=== PATIENT | male | born 1960 | race African-American/Black ===

== ENCOUNTER 2019-02-01 09:47 | Inpatient (IN) | payer OTHER ==
[~2019-02-01] VITALS: Ht 180.3 cm; Wt 158.8 kg
[2019-02-01] MEDS ORDERED: INSULIN (10:06)
[2019-02-01] MEDS ORDERED: LOSA25TA26 PO (10:06)
[2019-02-01] MEDS ORDERED: METF-816 PO (10:06)
[2019-02-01] MEDS ORDERED: IPRATROPIUM BROMIDE (0.02%) 0.5MG/2.5ML NEB HHN STA (11:16)
[2019-02-01] MEDS ORDERED: ALBUTEROL (0.083%) 2.5MG/3ML NEB HHN STA (11:16)
[2019-02-01] MEDS ORDERED: ASPIRIN 81MG TABLET PO ONE (11:30)
[2019-02-01] MEDS ORDERED: NITROGLYCERIN OINT 1GM/INCH UDPKT TD ONE (11:30)
[2019-02-01 12:11] LABS: BASOPHILS % 0.9 % (0.0-2.0); EOSINOPHILS % 3.1 % (0.0-5.0); HEMOGLOBIN. 13.1 g/dL (14.0-18.0); LYMPHOCYTES % 26.6 % (20.0-50.0); MEAN CORPUSCULAR HEMOGLOBIN 26.9 pg (28.0-32.0); MONOCYTES % 12.2 % (2.0-8.0); NEUTROPHILS % 57.2 % (40.0-76.0); PLATELET 272 x1000/uL (130-400); RED BLOOD CELL COUNT 4.88 mill/uL (4.7-6.1); RED CELL DISTRIBUTION WIDTH 13.3 % (11.6-14.6)
[2019-02-01 12:16] LABS: CHLORIDE 108 mEq/L (98-107)
[2019-02-01 12:33] LABS: INR 0.9; PARTIAL THROMBOPLASTIN TIME 26.2 sec (23.4-31.0); PROTHROMBIN TIME 9.8 sec (9.6-11.0)
[2019-02-01] MEDS ORDERED: LEVOFLOXACIN 750MG PREMIX 150 ML IV ONE (14:45)
[2019-02-01 15:18] LABS: CLARITY URINE CLEAR (CLEAR); COLOR URINE YELLOW (YELLOW); KETONES URINE NEGATIVE (NEGATIVE); LEUKOCYTE ESTERASE URINE NEGATIVE (NEGATIVE); NITRITE URINE NEGATIVE (NEGATIVE); OCCULT BLOOD URINE 3+ (NEGATIVE); PH URINE 5.5 (4.5-8.0); PROTEIN URINE 1+ (NEGATIVE); SPECIFIC GRAVITY URINE 1.023 (1.005-1.030); UROBILINOGEN URINE 0.2 E.U./dL (0.2-1.0)
[2019-02-01] MEDS ORDERED: ACETAMINOPHEN 325MG TABLET PO PRN (16:30)
[2019-02-01] MEDS ORDERED: DIPHENHYDRAMINE 50MG/ML VIAL IV PRN (16:30)
[2019-02-01] MEDS ORDERED: MAGNESIUM/ALUMINUM HYDROXIDE/SIMETHICONE 30ML UDC PO PRN (16:30)
[2019-02-01] MEDS ORDERED: DOCUSATE SODIUM 100MG CAPSULE PO PRN (16:30)
[2019-02-01] MEDS ORDERED: HYDROCODONE/ACETAMINOPHEN 5/325MG TABLET PO PRN (16:30)
[2019-02-01] MEDS ORDERED: GUAIFENESIN 200MG/10ML SUGAR FREE UDC PO PRN (16:30)
[2019-02-01] MEDS ORDERED: IPRATROPIUM/ALBUTEROL 0.5-3(2.5)MG/3ML NEB INH PRN (16:30)
[2019-02-01] MEDS ORDERED: ONDANSETRON HCL 4MG/2ML INJ IV PRN (16:30)
[2019-02-01] MEDS: CLONIDINE 0.1MG TABLET PO PRN (17:58)
[2019-02-01 18:00] LABS: PHOSPHORUS 3.5 mg/dL (2.5-4.9)
[2019-02-01] MEDS ORDERED: ENOXAPARIN 40MG/0.4ML SYR SUBCUT NR (18:00)
[2019-02-01 22:00] VITALS: BP 125/89
[2019-02-01 23:13] LABS: CREATINE KINASE 156 IU/L (39-308)
[2019-02-01 23:14] LABS: CREATINE KINASE MB FRACTION < 1.0 ng/mL (0.5-3.6)
[2019-02-01] MEDS ORDERED: ATOR20TA65 PO (23:28)
[2019-02-02] VITALS: BP 135/90
[2019-02-02] MEDS ORDERED: DEXTROSE 50% WATER 50ML SYRINGE IV PRN (00:15)
[2019-02-02] MEDS ORDERED: ENOXAPARIN 40MG/0.4ML SYR SUBCUT SCH (06:00)
[2019-02-02 06:10] VITALS: BP 147/89
[2019-02-02] MEDS: INSULIN LISPRO 100 UNITS/ML SUBCUT SCH ×2 (06:36→12:40)
[2019-02-02] MEDS: BLOOD SUGAR DIAGNOSTIC STRIP TEST SCH ×2 (06:36→12:46)
[2019-02-02 07:41] LABS: BASOPHILS % 0.2 % (0.0-2.0); EOSINOPHILS % 2.5 % (0.0-5.0); HEMATOCRIT. 40.1 % (42.0-52.0); HEMOGLOBIN. 13.1 g/dL (14.0-18.0); LYMPHOCYTES % 26.9 % (20.0-50.0); MEAN CORPUSCULAR HEMOGLOBIN 27.3 pg (28.0-32.0); MEAN CORPUSCULAR VOLUME 83.7 fL (80.0-94.0); MEAN PLATELET VOLUME 7.1 fl (7.4-10.4); MONOCYTES % 9.2 % (2.0-8.0); NEUTROPHILS % 61.2 % (40.0-76.0); PLATELET 285 x1000/uL (130-400); RED BLOOD CELL COUNT 4.79 mill/uL (4.7-6.1); RED CELL DISTRIBUTION WIDTH 13.7 % (11.6-14.6)
[2019-02-02 08:28] LABS: CHLORIDE 105 mEq/L (98-107)
[2019-02-02 08:53] LABS: LDL CHOLESTEROL 76 mg/dL (5-100)
[2019-02-02 08:54] LABS: CREATINE KINASE 140 IU/L (39-308)
[2019-02-02 08:55] LABS: HDL CHOLESTEROL 38 mg/dL (40-59)
[2019-02-02 08:57] LABS: CREATINE KINASE MB FRACTION < 1.0 ng/mL (0.5-3.6)
[2019-02-02] MEDS ORDERED: THIAMINE HCL 100MG TABLET PO SCH (10:15)
[2019-02-02] MEDS ORDERED: MULTIVITAMINS,THER W-MINERALS TABLET PO SCH (10:15)
[2019-02-02] MEDS ORDERED: FOLIC ACID 1MG TABLET PO SCH (10:15)
[2019-02-02] MEDS ORDERED: FLUTICASONE PROPIONATE 50MCG/SPRAY BOTTLE BOTHNSTRLS SCH (11:00)
[2019-02-02 12:00] VITALS: BP 130/100
[2019-02-02] MEDS ORDERED: IPRATROPIUM/ALBUTEROL 0.5-3(2.5)MG/3ML NEB HHN SCH (12:00)
[2019-02-02] MEDS ORDERED: LOSARTAN POTASSIUM 25 MG TABLET PO SCH (13:15)
[2019-02-02] MEDS ORDERED: AMLODIPINE 2.5MG TABLET PO SCH (13:15)
[2019-02-02] MEDS ORDERED: LOSA25TA3 PO (13:18)
[2019-02-02] MEDS ORDERED: DEXTL PO (13:18)
[2019-02-02] MEDS ORDERED: FOLI-43 PO (13:18)
[2019-02-02] MEDS ORDERED: THIA100T72 PO (13:18)
[2019-02-02 13:31] VITALS: BP 164/103
[2019-02-02] MEDS: CLONIDINE 0.1MG TABLET PO PRN (13:36)
[2019-02-02 14:11] LABS: *BARBITURATES SCREEN URINE NEGATIVE (NEGATIVE); *BENZODIAZEPINES SCREEN URINE NEGATIVE (NEGATIVE); *COCAINE SCREEN URINE NEGATIVE (NEGATIVE)
[2019-02-02 14:12] LABS: *AMPHETAMINES SCREEN URINE NEGATIVE (NEGATIVE); CANNABINOID URINE SCREEN PRESUMTIVE POSITIVE (NEGATIVE); METHADONE URINE SCREEN NEGATIVE (NEGATIVE); OPIATES URINE SCREEN NEGATIVE (NEGATIVE); PHENCYCLIDINE URINE SCREEN NEGATIVE (NEGATIVE)
[2019-02-02 14:46] VITALS: BP 157/100
[2019-02-02] MEDS ORDERED: GUAIFENESIN 600MG ER TABLET PO SCH (21:00)
== END 2019-02-02 15:10 | disposition home or self-care (01) | DRG 189 ==
LOC: ER 09:47 → 8WST 15:53 → CANRESERV 18:07 → ENRESERV 19:42
PROVIDERS: ADMIT Internal Medicine; ATTEND Internal Medicine
DX: J96.00 Acute respiratory failure, unspecified whether with hypoxia or hypercapnia (principal); Z68.42 Body mass index [BMI] 45.0-49.9, adult; J06.9 Acute upper respiratory infection, unspecified; D64.9 Anemia, unspecified; D72.821 Monocytosis (symptomatic); E11.9 Type 2 diabetes mellitus without complications; E66.9 Obesity, unspecified; E78.00 Pure hypercholesterolemia, unspecified; E78.5 Hyperlipidemia, unspecified; Z60.2 Problems related to living alone; F10.10 Alcohol abuse, uncomplicated; F12.90 Cannabis use, unspecified, uncomplicated; F17.210 Nicotine dependence, cigarettes, uncomplicated; I10 Essential (primary) hypertension; J30.2 Other seasonal allergic rhinitis; Z79.4 Long term (current) use of insulin; Z87.442 Personal history of urinary calculi; Z79.84 Long term (current) use of oral hypoglycemic drugs; Z79.899 Other long term (current) drug therapy; Z71.6 Tobacco abuse counseling
CPT/HCPCS: 36415; 71045; 80061; 80305; 82550; 82553; 82962; 83036; 83605; 83735; 83880; 84100; 84443; 84484; 85379; 93005; 93306; 93970; 94640; 96374; 96375; 97161; 97165; 99285; J1650; J1956; J7611; J7620

== ENCOUNTER 2021-06-29 13:37 | Emergency (ER) | payer OTHER ==
[~2021-06-29] VITALS: Ht 175.3 cm; Wt 150.0 kg
[~2021-06-29 13:37] MED LIST: ATOR20TA65 PO; DEXTL PO; FOLI-43 PO; LOSA25TA3 PO; METF-874 PO; THIA100T72 PO
[2021-06-29 13:48] VITALS: BP 194/110
[2021-06-29] MEDS ORDERED: IBUP-2029 MT (18:23)
== END 2021-06-29 18:50 | disposition home or self-care (01) ==
LOC: ER 13:37
DX: M71.22 Synovial cyst of popliteal space [Baker], left knee (principal); M17.12 Unilateral primary osteoarthritis, left knee; E11.9 Type 2 diabetes mellitus without complications; I10 Essential (primary) hypertension; E78.00 Pure hypercholesterolemia, unspecified; F12.10 Cannabis abuse, uncomplicated; Z79.84 Long term (current) use of oral hypoglycemic drugs
CPT/HCPCS: 73560; 93971; 99284

== ENCOUNTER 2021-08-29 18:26 | Emergency (ER) | payer OTHER ==
[~2021-08-29] VITALS: Ht 182.9 cm; Wt 159.0 kg
[~2021-08-29 18:26] MED LIST changes: +IBUP-2029 MT
[2021-08-29] MEDS ORDERED: CEPH500C2 MT (18:52)
[2021-08-29] MEDS ORDERED: CEPHALEXIN 250MG CAPSULE PO ONE (19:00)
[2021-08-29 19:10] VITALS: BP 174/98
[2021-08-29] MEDS ORDERED: CEPHALEXIN 250MG CAPSULE PO NR (19:15)
== END 2021-08-29 19:11 | disposition home or self-care (01) ==
LOC: ER 18:26
DX: L03.011 Cellulitis of right finger (principal); E11.9 Type 2 diabetes mellitus without complications; I10 Essential (primary) hypertension; E78.00 Pure hypercholesterolemia, unspecified; F12.10 Cannabis abuse, uncomplicated; Z79.84 Long term (current) use of oral hypoglycemic drugs
CPT/HCPCS: 99283

== ENCOUNTER 2023-11-27 12:48 | Emergency (ER) | payer OTHER ==
[~2023-11-27] VITALS: Ht 182.9 cm; Wt 164.0 kg
[~2023-11-27 12:48] MED LIST changes: +CEPH500C2 MT; +LOSA-412 PO; -LOSA25TA3 PO
[2023-11-27 12:55] VITALS: TEMP 98.3; O2SAT 97
[2023-11-27 16:31] LABS: BASOPHILS % 0.4 % (0.0-2.0); EOSINOPHILS % 2.6 % (0.0-5.0); HEMATOCRIT. 42.2 % (42.0-52.0); HEMOGLOBIN. 13.5 g/dL (14.0-18.0); LYMPHOCYTES % 13.3 % (20.0-50.0); MEAN CORPUSCULAR HEMOGLOBIN 27.5 pg (28.0-32.0); MEAN CORPUSCULAR HGB CONC 32.1 g/dL (31.0-37.0); MEAN CORPUSCULAR VOLUME 85.8 fL (80.0-94.0); MEAN PLATELET VOLUME 7.1 fl (7.4-10.4); MONOCYTES % 12.6 % (2.0-8.0); NEUTROPHILS % 71.1 % (40.0-76.0); PLATELET 233 x1000/uL (130-400); RED BLOOD CELL COUNT 4.92 mill/uL (4.7-6.1); RED CELL DISTRIBUTION WIDTH 14.1 % (11.6-14.6); WHITE BLOOD COUNT 8.4 x1000/uL (4.5-11.0)
[2023-11-27 16:39] LABS: INR 0.9; PARTIAL THROMBOPLASTIN TIME 26.3 sec (23.4-31.0); PROTHROMBIN TIME 10.4 sec (9.6-11.0)
[2023-11-27] MEDS: HYDRALAZINE 20MG/ML VIAL IV ONE (16:46)
[2023-11-27 16:55] LABS: ALANINE AMINOTRANSFERASE 19 IU/L (10-49); ALBUMIN 4.5 g/dL (3.2-4.8); ASPARTATE AMINOTRANSFERASE 32 IU/L (<34); BILIRUBIN TOTAL 0.5 mg/dL (0.1-1.0); CALCIUM 8.8 mg/dL (8.7-10.4); CARBON DIOXIDE 22 mEq/L (21-32); CHLORIDE 103 mEq/L (98-107); GLUCOSE 92 mg/dL (70-105); POTASSIUM 4.4 mEq/L (3.5-5.1); PROTEIN TOTAL 6.9 g/dL (6.0-8.3); SODIUM 134 mEq/L (136-145); TROPONIN I HIGH SENSITIVITY 7 ng/L (3.0-53); UREA NITROGEN BLOOD 9 mg/dL (9-23)
[2023-11-27] MEDS ORDERED: GUAI-450 MT (17:02)
[2023-11-27] MEDS ORDERED: BENZ1LOZ73 MT (17:02)
[2023-11-27 17:27] VITALS: BP 159/70; PULSE 70; RESP 15
== END 2023-11-27 17:29 | disposition home or self-care (01) ==
LOC: ER 13:14
DX: J06.9 Acute upper respiratory infection, unspecified (principal); I10 Essential (primary) hypertension; F12.90 Cannabis use, unspecified, uncomplicated; E11.9 Type 2 diabetes mellitus without complications; E78.00 Pure hypercholesterolemia, unspecified
CPT/HCPCS: 80053; 83880; 85025; 85610; 85730; 84484; 36415; 71045; 93005; 96374; 99285; J0360; Z7610 ×3

== ENCOUNTER 2024-03-27 15:43 | Inpatient (IN) | payer OTHER ==
[~2024-03-27] VITALS: Ht 182.9 cm; Wt 154.2 kg
[~2024-03-27 15:43] MED LIST changes: +BENZ1LOZ73 MT; +GUAI-450 MT
[2024-03-27 17:46] LABS: BASOPHILS % 0.3 % (0.0-2.0); EOSINOPHILS % 2.4 % (0.0-5.0); HEMATOCRIT. 43.2 % (42.0-52.0); HEMOGLOBIN. 13.8 g/dL (14.0-18.0); LYMPHOCYTES % 13.6 % (20.0-50.0); MEAN CORPUSCULAR HEMOGLOBIN 26.9 pg (28.0-32.0); MEAN CORPUSCULAR VOLUME 83.9 fL (80.0-94.0); MONOCYTES % 13.6 % (2.0-8.0); NEUTROPHILS % 70.1 % (40.0-76.0); PLATELET 375 x1000/uL (130-400); RED BLOOD CELL COUNT 5.15 mill/uL (4.7-6.1); WHITE BLOOD COUNT 13.5 x1000/uL (4.5-11.0)
[2024-03-27 17:54] LABS: POTASSIUM 3.9 mEq/L (3.5-5.1)
[2024-03-27 17:55] LABS: CALCIUM 9.7 mg/dL (8.7-10.4)
[2024-03-27] MEDS: CEFTRIAXONE 1GM/50ML 50 ML IV ONE (18:39)
[2024-03-27] MEDS: SODIUM CHLORIDE 0.9% 1,000 ML IV ONE (18:39)
[2024-03-27] MEDS ORDERED: IPRATROPIUM/ALBUTEROL 0.5-3(2.5)MG/3ML NEB HHN PRN (21:30)
[2024-03-27] MEDS ORDERED: DOCUSATE SODIUM 100MG CAPSULE PO PRN (21:30)
[2024-03-27] MEDS ORDERED: GUAIFENESIN 200MG/10ML SUGAR FREE UDC PO PRN (21:30)
[2024-03-27] MEDS ORDERED: MAGNESIUM/ALUMINUM HYDROXIDE/SIMETHICONE 30ML UDC PO PRN (21:30)
[2024-03-27] MEDS ORDERED: ONDANSETRON HCL 4MG/2ML INJ IV PRN (21:30)
[2024-03-27] MEDS ORDERED: CLONIDINE 0.1MG TABLET PO PRN (21:30)
[2024-03-28] MEDS ORDERED: DEXTROSE 50% WATER 50ML SYRINGE IV PRN ×3 (02:15)
[2024-03-28 03:00] VITALS: BP 126/80; PULSE 92; RESP 17; TEMP 97.2
[2024-03-28] MEDS: BLOOD SUGAR DIAGNOSTIC STRIP TEST SCH (06:35)
[2024-03-28] MEDS ORDERED: BLOOD SUGAR DIAGNOSTIC STRIP TEST SCH ×3 (07:20)
[2024-03-28] MEDS: INSULIN LISPRO 100 UNITS/ML SUBCUT SCH (07:50)
[2024-03-28 08:00] VITALS: BP 111/74; PULSE 83; RESP 18; TEMP 96.7; TEMP 98.1
[2024-03-28] MEDS: TAMSULOSIN HCL 0.4MG SR CAPSULE PO SCH (09:00)
[2024-03-28] MEDS: CEFTRIAXONE 2GM/50ML 50 ML IV SCH (10:14)
[2024-03-28] MEDS: SODIUM CHLORIDE 0.9% 500 ML IV ONE (11:30)
[2024-03-28 12:00] VITALS: BP 118/80; PULSE 79; RESP 18; TEMP 98
[2024-03-28] MEDS: PNEUMOCOCCAL 23-VAL P-SAC VAC 0.5 ML IM ONE (15:00)
[2024-03-28 16:00] VITALS: BP 120/80; PULSE 80; RESP 16; TEMP 97.9
[2024-03-28 17:36] LABS: CREATINE KINASE 45 IU/L (46-171)
[2024-03-28] MEDS: ACETAMINOPHEN 325MG TABLET PO PRN (18:44)
[2024-03-28 20:00] VITALS: BP 112/71; PULSE 89; RESP 18; TEMP 99.1
[2024-03-28] MEDS: ATORVASTATIN CALCIUM 20MG TABLET PO SCH (20:15)
[2024-03-29] VITALS: BP 152/72; PULSE 71; RESP 20; TEMP 98.6
[2024-03-29 04:00] VITALS: BP 124/70; PULSE 62; RESP 18; TEMP 97.7
[2024-03-29 06:47] LABS: BASOPHILS % 0.4 % (0.0-2.0); EOSINOPHILS % 3.5 % (0.0-5.0); HEMATOCRIT. 38.7 % (42.0-52.0); HEMOGLOBIN. 12.4 g/dL (14.0-18.0); LYMPHOCYTES % 16.5 % (20.0-50.0); MEAN CORPUSCULAR HEMOGLOBIN 26.7 pg (28.0-32.0); MEAN CORPUSCULAR VOLUME 83.4 fL (80.0-94.0); MEAN PLATELET VOLUME 7.1 fl (7.4-10.4); MONOCYTES % 12.2 % (2.0-8.0); NEUTROPHILS % 67.4 % (40.0-76.0); PLATELET 360 x1000/uL (130-400); RED BLOOD CELL COUNT 4.64 mill/uL (4.7-6.1); RED CELL DISTRIBUTION WIDTH 13.7 % (11.6-14.6); WHITE BLOOD COUNT 9.2 x1000/uL (4.5-11.0)
[2024-03-29 07:03] LABS: CALCIUM 9.5 mg/dL (8.7-10.4); CARBON DIOXIDE 21 mEq/L (21-32); CHLORIDE 104 mEq/L (98-107); POTASSIUM 3.8 mEq/L (3.5-5.1); SODIUM 134 mEq/L (136-145)
[2024-03-29 07:09] LABS: CREATININE 1.4 mg/dL (0.6-1.3); GLUCOSE 122 mg/dL (70-105); UREA NITROGEN BLOOD 22 mg/dL (9-23)
[2024-03-29 08:00] VITALS: BP 110/72; PULSE 80; RESP 18; TEMP 98
[2024-03-29 12:00] VITALS: BP 116/89; PULSE 92; RESP 19; TEMP 97.9
[2024-03-29 16:00] VITALS: BP 116/80; PULSE 90; RESP 19; TEMP 98
[2024-03-29 20:00] VITALS: BP 139/81; PULSE 89; RESP 20; TEMP 98.8
[2024-03-30] VITALS: BP 132/88; PULSE 92; RESP 18; TEMP 97.5
[2024-03-30 04:00] VITALS: BP 126/78; PULSE 84; RESP 20; TEMP 97.8
[2024-03-30 08:00] VITALS: BP 128/80; PULSE 89; RESP 20; TEMP 97.9
[2024-03-30 10:20] VITALS: BP 120/78; PULSE 70; TEMP 98; O2SAT 98
[2024-03-30 10:24] VITALS: BP 120/78; PULSE 70; TEMP 98; O2SAT 98
[2024-03-30 12:00] VITALS: BP 128/80; PULSE 89; RESP 20; TEMP 97.9
== END 2024-03-30 13:57 | disposition home or self-care (01) | DRG 872 ==
LOC: ER 15:43 → 6EST 20:35
PROVIDERS: ADMIT Internal Medicine; ATTEND Internal Medicine
DX: A41.9 Sepsis, unspecified organism (principal); N17.9 Acute kidney failure, unspecified; E87.1 Hypo-osmolality and hyponatremia; E78.00 Pure hypercholesterolemia, unspecified; I10 Essential (primary) hypertension; E11.22 Type 2 diabetes mellitus with diabetic chronic kidney disease; E86.0 Dehydration; E86.1 Hypovolemia; F12.90 Cannabis use, unspecified, uncomplicated; F17.210 Nicotine dependence, cigarettes, uncomplicated; I12.9 Hypertensive chronic kidney disease with stage 1 through stage 4 chronic kidney disease, or unspecified chronic kidney disease; N18.1 Chronic kidney disease, stage 1; N20.0 Calculus of kidney; N28.1 Cyst of kidney, acquired; N40.1 Benign prostatic hyperplasia with lower urinary tract symptoms; Z79.82 Long term (current) use of aspirin; Z79.84 Long term (current) use of oral hypoglycemic drugs; Z79.899 Other long term (current) drug therapy
CPT/HCPCS: 36415; 74176; 76770; 80048; 82550; 82962; 83036; 85025; 90732; 99285; J0696; J1815; J7030